=== PATIENT | female | born 1960 | race Caucasian/White ===

== ENCOUNTER 2017-06-19 09:11 | Emergency (ER) | payer BC, OTHER ==
[~2017-06-19] VITALS: Ht 154.9 cm; Wt 84.0 kg
[~2017-06-19 09:11] MED LIST: ACET500C; AMOX500C; ASPI81TA3; CELE20TA; CORE3.12; CORE6.25; EPIDRIN; FLON0.05; NIAS500T2; POTA20TA; SPIR25TA2; TORS20TA2; VITACAP31; VITAMIN C; VITAMIN D50000 UNT; XANA0.5T
[2017-06-19] MEDS ORDERED: ALPRAZolam 0.25 MG TAB PO ONE (10:00)
[2017-06-19 10:16] LABS: BASO % 0.5 % (0.0-1.0); EOS # 0.1 K/mm3 (0.0-0.50); EOS % 1.4 % (0.0-3.0); INR 1.34; LARGE UNSTAINED CELL # 0.1 K/mm3 (0.0-0.4); LARGE UNSTAINED CELL % 1.5 % (0.0-4.0); LYMPH # 1.5 K/mm3 (1.5-4.5); LYMPH % 21.1 % (24.0-44.0); MEAN CORPUSCULAR HGB CONC 35.3 g/dl (32.0-36.5); MEAN CORPUSCULAR VOLUME 104.8 fl (80.0-96.0); MONO # 0.4 K/mm3 (0.0-0.8); MONO % 6.3 % (0.0-5.0); NEUTROPHILS # 4.5 K/mm3 (1.8-7.7); NEUTROPHILS % 69.3 % (36.0-66.0); PLATELET COUNT, AUTOMATED 169 k/mm3 (150-450); RED CELL DISTRIBUTION WIDTH 11.8 % (11.5-14.5); WHITE BLOOD COUNT 6.4 K/mm3 (4.0-10.0)
[2017-06-19] MEDS ORDERED: CITA20TA4 PO (10:16)
[2017-06-19] MEDS ORDERED: K-TA10TA2 PO (10:16)
[2017-06-19] MEDS ORDERED: TORS20TA2 PO (10:16)
[2017-06-19] MEDS ORDERED: SPIR50TA2 PO (10:17)
[2017-06-19] MEDS ORDERED: CALCTAB28 PO (10:17)
--- NOTE | 2017-06-19 10:21 | REP ---
Portable chest, single AP view, the patient upright, and 09:57 a.m.: Comparison is 07/06/2016. The lung santamaria are clear. There is chronic cardiomegaly, unchanged. There are sternotomy wires and cardiac valve prosthesis, unchanged. There is a pacemaker, unchanged. Impression: No acute cardiopulmonary findings. Chronic cardiomegaly, pacemaker, sternotomy and cardiac valve replacement. Signed by Candelario Bansal MD 06/19/2017 10:13 A
[2017-06-19] MEDS ORDERED: BISO5TAB5 PO (10:24)
[2017-06-19 10:26] LABS: ALBUMIN 4.1 GM/DL (3.2-5.2); ALBUMIN/GLOBULIN RATIO 1.21 (1.00-1.93); ALKALINE PHOSPHATASE 56 U/L (45-117); ALT/SGPT 33 U/L (12-78); ANION GAP 7 MEQ/L (8-16); AST/SGOT 30 U/L (15-37); BILIRUBIN,DIRECT 0.1 MG/DL (0.0-0.2); BILIRUBIN,TOTAL 0.3 MG/DL (0.2-1.0); BLOOD UREA NITROGEN 15 MG/DL (7-18); CALCIUM LEVEL 9.2 MG/DL (8.5-10.1); CARBON DIOXIDE LEVEL 28 MEQ/L (21-32); CHLORIDE LEVEL 104 MEQ/L (98-107); CREATININE FOR GFR 0.89 MG/DL (0.55-1.02); FREE T4 0.79 NG/DL (0.76-1.46); GLOMERULAR FILTRATION RATE > 60.0 (>51); GLUCOSE, FASTING 101 MG/DL (70-105); MAGNESIUM LEVEL 2.4 MG/DL (1.8-2.4); POTASSIUM SERUM 3.9 MEQ/L (3.5-5.1); SODIUM LEVEL 139 MEQ/L (136-145); TOTAL PROTEIN 7.5 GM/DL (6.4-8.2)
[2017-06-19] MEDS ORDERED: POTASSIUM CHLORIDE 10 MEQ SR TABLET PO ONE (11:15)
[2017-06-19] MEDS ORDERED: XANA0.25 PO (16:32)
[2017-06-19 17:04] VITALS: BP 112/56
--- NOTE | 2017-06-20 11:23 | ECGEPIP ---
Stationary ECG Study [facility] - ED Test Date: 2017-06-19 Pat Name: VEE MUÑOZ Department: Room: - Gender: F [employer]: rn : 1960 Requested By: Ana Webb Order Number: [id number] Reading MD: Ana Webb Measurements Intervals [place] Rate: 82 P: [place]: 0 QRS: -12 QRSD: 104 T: -44 QT: 389 QTc: 454 Interpretive Statements ATRIAL FIBRILLATION LOW QRS VOLTAGE IN PRECORDIAL LEADS POSSIBLE RIGHT VENTRICULAR CONDUCTION DELAY INFERIOR MYOCARDIAL INFARCTION, OF INDETERMINATE AGE WITH POSTERIOR EXTENSION, SEEN 05/17/13 MODERATE T-WAVE ABNORMALITY, CONSIDER ANTERIOR ISCHEMIA, SEEN 05/17/13 Electronically Signed On 06-20-2017 11:23:16 EDT by Ana Webb
--- NOTE | 2017-06-20 11:33 | ECGEPIP ---
Stationary ECG Study [facility] - ED Test Date: 2017-06-19 Pat Name: VEE MUÑOZ Department: Room: - Gender: F [employer]: rn : 1960 Requested By: Ana Webb Order Number: [id number] Reading MD: Ana Webb Measurements Intervals [place] Rate: 62 P: -4 AL: 176 QRS: -9 QRSD: 104 T: -33 QT: 437 QTc: 447 Interpretive Statements SINUS RHYTHM LOW QRS VOLTAGE IN PRECORDIAL LEADS INFERIOR MYOCARDIAL INFARCTION, OF INDETERMINATE AGE WITH POSTERIOR EXTENSION MODERATE T-WAVE ABNORMALITY, CONSIDER ANTEROLATERAL ISCHEMIA SIMILAR WITH EXCEPTION OF RHYTHM 06/19/17 9:32 Electronically Signed On 06-20-2017 11:33:31 EDT by Ana Webb
== END 2017-06-19 17:13 | disposition home or self-care (01) ==
LOC: M ED 09:11
DX: I48.91 Unspecified atrial fibrillation (principal); I51.7 Cardiomegaly; I20.9 Angina pectoris, unspecified; Z88.1 Allergy status to other antibiotic agents; Z88.5 Allergy status to narcotic agent; Z88.6 Allergy status to analgesic agent; Z79.899 Other long term (current) drug therapy